=== PATIENT | male | born 1965 | race Caucasian/White ===

== ENCOUNTER 2016-11-05 13:02 | Inpatient (IN) | payer OTHER ==
[2016-11-05 13:24] VITALS: BMI 22.9
--- NOTE | 2016-11-05 15:42 | HP ---
COWS - Scale Resting Pulse: 0= [place] 80 or Below Sweatin=Flushed/Facial Moisture Restless Observation: 1= Difficult to Sit Still Pupil Size: 0= Normal to Room Light Bone or Joint Aches: 2= Severe Diffuse Aches Runny Nose/ Eye Tearin= Runny Nose/Eyes GI Upset > 30mins: 2= Nausea/Diarrhea Tremor Observation: 2= Slight Tremor Visible Yawning Observation: 1= 1-2x During Session Anxiety or Irritability: 2=Irritable/Anxious Goose Flesh Skin: 3=Piloerection COWS Score: 17 Admission ROS S - HPI Chief Complaint: I want to stop using Xanax and Oxycodone Allergies/Adverse Reactions: Allergies Allergy/AdvReac Type Severity Reaction Status Date / Time No Known Allergies Allergy Verified 11/05/16 15:33 History of Present Illness: 50 y/o male with opiates and xanax dependence presents for detox. He denies any periods of sobriety. Exam Limitations: No Limitations - Ebola screening Have you traveled outside of the country in the last 21 days: No Have you had contact with anyone from an Ebola affected area: No Have you been sick,other than usual withdrawal symptoms: No Do you have a fever: No - Review of Systems Constitutional: Chills, Malaise EENT: reports: Nose Congestion Respiratory: reports: No Symptoms reported Cardiac: reports: No Symptoms Reported GI: reports: Nausea, Poor Appetite : reports: No Symptoms Reported Musculoskeletal: reports: Muscle Weakness Integumentary: reports: Flushing Neuro: reports: Tremors, Weakness Endocrine: reports: No Symptoms Reported Hematology: reports: No Symptoms Reported Psychiatric: reports: No Sypmtoms Reported Other Systems: Reviewed and Negative Patient History - Patient Medical History Hx Anemia: No Hx Asthma: No Hx Chronic Obstructive Pulmonary Disease (COPD): No Hx Cancer: No Hx Cardiac Disorders: No Hx Congestive Heart Failure: No Hx Hypertension: No Hx Hypercholesterolemia: No Hx Pacemaker: No HX Cerebrovascular Accident: No Hx Seizures: No Hx Dementia: No Hx Diabetes: No Hx Gastrointestinal Disorders: No Hx Liver Disease: No Hx Genitourinary Disorders: No Hx Sexually Transmitted Disorders: No Hx Renal Disease (ESRD): No Hx Thyroid Disease: No Hx Human Immunodeficiency Virus (HIV): No Hx Hepatitis C: No Hx Depression: No Hx Suicide Attempt: No Hx Bipolar Disorder: No Hx Schizophrenia: No - Patient Surgical History Past Surgical History: No - PPD History Previous Implant?: Yes Documented Results: Negative w/o proof Implanted On Prior [facility] Admission?: No PPD to be Administered?: Yes - Reproductive History Patient is a Female of Child Bearing Age (11 -55 yrs old): No - Smoking Cessation Smoking history: Former smoker Have you smoked in the past 12 months: No Hx Chewing Tobacco Use: No Initiated information on smoking cessation: Yes 'Breaking Loose' booklet given: 11/05/16 - Substances Abused Alprazolam (Xanax) Route: Oral Frequency: Daily Amount used: 6mg Age of first use: 46 Date of Last Use: 11/05/16 Oxycontin Route: Oral Frequency: Daily Amount used: 15mg Age of first use: 50 Date of Last Use: 11/05/16 Family Disease History - Family Disease History Family History: Unremarkable Admission Physical Exam [facility] - Vital Signs Vital Signs: Vital Signs - 24 hr 11/05/16 13:23 Temperature 95.7 F L Pulse Rate 53 L Respiratory 18 Rate Blood Pressure 116/76 - Physical General Appearance: Yes: No Apparent Distress HEENTM: Yes: Hearing grossly Normal, Normocephalic, Normal Voice, Pharynx Normal Respiratory: Yes: Chest Non-Tender, Lungs Clear, Normal Breath Sounds, No Respiratory Distress, No Accessory Muscle Use Neck: Yes: No masses,lesions,Nodules, Supple Breast: Yes: Breast Exam Deferred Cardiology: Yes: Regular Rate, S1, S2 Abdominal: Yes: Normal Bowel Sounds, Non Tender, Flat, Soft Genitourinary: Yes: Within Normal Limits Back: Yes: Normal Inspection Musculoskeletal: Yes: full range of Motion Extremities: Yes: Normal Capillary Refill, Normal Inspection, Normal Range of Motion, Non-Tender, Tremors Neurological: Yes: litigation attorney II-XII NML intact, Fully Oriented, Alert, Motor Strength 5/5, Normal Mood/Affect, Normal Response Integumentary: Yes: Normal Color Lymphatic: Yes: Within Normal Limits - Diagnostic (1) Opioid dependence with withdrawal Current Visit: Yes Status: Acute (2) Sedative/hypnotic withdrawal without complication Current Visit: Yes Status: Acute Cleared for Admission [facility] - Detox or Rehab [facility] Level of Care: Medically Managed Detox Regimen/Protocol: Methadone/Valium [facility] Breath Alcohol Content Breath Alcohol Content: 0 Urine Drug Screen - Results Drug Screen Negative: No Urine Drug Screen Results: BZO-Benzodiazepines, OXY-Oxycodone
[2016-11-05] MEDS ORDERED: ACETAMINOPHEN 325 MG TABLET (FP) PO PRN (15:48)
[2016-11-05] MEDS ORDERED: MENTHOL/PHENOL 1 EACH UD MM PRN (15:48)
[2016-11-05] MEDS ORDERED: METHADONE HCL 10 MG TABLET (FOR DETOX USE ONLY) PO ONE ×2 (15:48→23:00)
[2016-11-05] MEDS ORDERED: guaiFENesin/D-METHORPHAN HB 10 ML UNIT-DOSE CUPS PO PRN (15:48)
[2016-11-05] MEDS ORDERED: MAGNESIUM CITRATE 300 ML BOTTLE PO PRN (15:48)
[2016-11-05] MEDS ORDERED: LOPERAMIDE HCL 2 MG CAPSULE PO PRN (15:48)
[2016-11-05] MEDS ORDERED: diazePAM 5 MG TABLET PO ONE (15:48)
[2016-11-05] MEDS ORDERED: MAG HYDROX/AL HYDROX/SIMETH 30 ML UNIT-DOSE CUP PO PRN (15:48)
[2016-11-05] MEDS ORDERED: P-EPHED 60MG/TRIPROLIDI 2.5MG TABLET PO PRN (15:48)
[2016-11-05] MEDS ORDERED: hydrOXYzine PAMOATE 50 MG CAPSULE (FP) PO PRN (15:48)
[2016-11-05] MEDS ORDERED: IBUPROFEN 400 MG TABLET (FP) PO PRN (15:48)
[2016-11-05] MEDS ORDERED: MAGNESIUM HYDROX 2400MG/30ML ORAL SUSPENSION 30 ML CUP PO PRN (15:48)
[2016-11-05] MEDS: THIAMINE HCL 100 MG TABLET (FP) PO SCH (22:16)
[2016-11-05] MEDS: diazePAM 5 MG TABLET PO SCH (22:17)
[2016-11-05] MEDS: diphenhydrAMINE HCL 50 MG CAPSULE PO PRN (22:37)
[2016-11-06] MEDS: diazePAM 5 MG TABLET PO SCH ×3 (06:11→22:27)
[2016-11-06] MEDS ORDERED: METHADONE HCL 10 MG TABLET (FOR DETOX USE ONLY) PO SCH (10:00)
[2016-11-06 10:19] LABS: MCH 29.7 pg (25.7-33.7); MCHC 33.9 g/dl (32.0-35.9); MEAN CELL VOLUME 87.4 fl (80-96); MEAN PLT VOLUME 9.6 fl (7.5-11.1); PLATELET COUNT 199 K/MM3 (134-434); WHITE BLOOD COUNT 5.7 K/mm3 (4.0-10.0)
[2016-11-06] MEDS: PRENATAL VITAMINS W/ FOLIC ACID TABLET (FP) PO SCH (10:20)
[2016-11-06 10:44] LABS: ALBUMIN 3.6 g/dl (3.4-5.0); ALK PHOS 84 U/L (45-117); ANION GAP 6 (8-16); BILIRUBIN,TOTAL 0.8 mg/dL (0.2-1.0); CALCIUM 8.8 mg/dL (8.5-10.1); CO2 32 mmol/L (21-32); CREATININE 0.9 mg/dL (0.7-1.3); GLUCOSE,RANDOM 86 mg/dL (74-106); SGOT/AST 13 U/L (15-37); SGPT/ALT 24 U/L (12-78); TOT PROT 6.1 g/dl (6.4-8.2)
--- NOTE | 2016-11-06 15:59 | PN ---
[facility] CIWA - CIWA Score Nausea/Vomitin Muscle Tremors: 4-Moderate,w/Arms Extend Anxiety: 4-Mod. Anxious/Guarded Agitation: 4-Moderately Restless Paroxysmal Sweats: No Perspiration Orientation: 0-Oriented Tacttile Disturbances: 1-Very Mild Itch/Numbness Auditory Disturbances: 0-None Visual Disturbances: 0-None Headache: 2-Mild CIWA-Ar Total Score: 17 [facility] COWS - Scale Resting Pulse: 1= [place] 81-100 Sweatin= No chills or Flushing Restless Observation: 0= Sits Still Pupil Size: 0= Normal to Room Light Bone or Joint Aches: 2= Severe Diffuse Aches Runny Nose/ Eye Tearin= Runny Nose/Eyes GI Upset > 30mins: 2= Nausea/Diarrhea Tremor Observation of Outstretched Hands: 2= Slight Tremor Visible Yawning Observation: 1= 1-2x During Session Anxiety or Irritability: 2=Irritable/Anxious Goose Flesh Skin: 0=Smooth Skin COWS Score: 12 S Progress Note (SOAP) Subjective: Anxious, restless, nausea, yawning, tremor, interrupted sleep, sweating Objective: 11/06/16 15:58 Last Vital Signs Temp Pulse Resp BP Pulse Ox 96.3 F L 57 L 18 134/84 11/06/16 13:36 11/06/16 13:36 11/06/16 13:36 11/06/16 13:36 Laboratory Tests 11/06/16 11/06/16 11/06/16 08:00 08:00 08:00 WBC 5.7 RBC 4.34 Hgb 12.9 Hct 37.9 MCV 87.4 MCHC 33.9 RDW 13.0 Plt Count 199 MPV 9.6 Sodium 141 Potassium 3.9 Chloride 103 Carbon Dioxide 32 Anion Gap 6 L BUN 13 Creatinine 0.9 Creat Clearance w eGFR > 60 Random Glucose 86 Calcium 8.8 Total Bilirubin 0.8 AST 13 L ALT 24 Alkaline Phosphatase 84 Total Protein 6.1 L Albumin 3.6 RPR Titer Nonreactive Labs noted Assessment: 11/06/16 15:59 Withdrawal symptoms Plan: Continue detox
[2016-11-06] MEDS: diazePAM 5 MG TABLET PO PRN (17:37)
[2016-11-06 17:40] LABS: URINE APPEARANCE CLEAR; URINE BILIRUBIN NEGATIVE (NEGATIVE); URINE BLOOD NEGATIVE (NEGATIVE); URINE COLOR YELLOW; URINE GLUCOSE (UA) NEGATIVE (NEGATIVE); URINE KETONE NEGATIVE (NEGATIVE); URINE LEUK ESTERASE NEGATIVE (NEGATIVE); URINE NITRITE NEGATIVE (NEGATIVE); URINE PROTEIN NEGATIVE (NEGATIVE); URINE UROBILINOGEN NEGATIVE E.U./dl (0.2-1.0)
--- NOTE | 2016-11-06 18:16 | EKG ---
Test Reason : Blood Pressure : / mmHG Vent. Rate : 056 BPM Atrial Rate : 056 BPM P-R Int : 152 ms QRS Dur : 094 ms QT Int : 416 ms P-R-T Axes : 071 080 064 degrees QTc Int : 401 ms SINUS BRADYCARDIA OTHERWISE NORMAL ECG NO PREVIOUS ECGS AVAILABLE Confirmed by CAIN STACY MD ([id number]) on 11/06/2016 6:16:34 PM Referred By: Confirmed By:CAIN STACY MD
[2016-11-06] MEDS: diphenhydrAMINE HCL 50 MG CAPSULE PO PRN (22:25)
[2016-11-06] MEDS: THIAMINE HCL 100 MG TABLET (FP) PO SCH (22:26)
[2016-11-07] MEDS: diazePAM 5 MG TABLET PO PRN ×3 (00:29→17:12)
[2016-11-07] MEDS: PRENATAL VITAMINS W/ FOLIC ACID TABLET (FP) PO SCH (10:18)
[2016-11-07] MEDS: diazePAM 5 MG TABLET PO SCH ×2 (10:18→22:25)
[2016-11-07] MEDS: METHADONE HCL 5 MG TABLET (FOR DETOX USE ONLY) PO SCH (10:19)
--- NOTE | 2016-11-07 10:56 | PN ---
S CIWA - CIWA Score Nausea/Vomitin-No Nausea/No Vomiting Muscle Tremors: 3 Anxiety: 4-Mod. Anxious/Guarded Agitation: 4-Moderately Restless Paroxysmal Sweats: 3 Orientation: 0-Oriented Tacttile Disturbances: 0-None Auditory Disturbances: 0-None Visual Disturbances: 0-None Headache: 0-None Present CIWA-Ar Total Score: 14 S COWS - Scale Resting Pulse: 0= [place] 80 or Below Sweatin=Flushed/Facial Moisture Restless Observation: 1= Difficult to Sit Still Pupil Size: 0= Normal to Room Light Bone or Joint Aches: 1= Mild Discomfort Runny Nose/ Eye Tearin= Runny Nose/Eyes GI Upset > 30mins: 2= Nausea/Diarrhea Tremor Observation of Outstretched Hands: 2= Slight Tremor Visible Yawning Observation: 1= 1-2x During Session Anxiety or Irritability: 2=Irritable/Anxious Goose Flesh Skin: 0=Smooth Skin COWS Score: 13 S Progress Note (SOAP) Subjective: Anxiety,tremors,sweating,interrupted sleep,restless,muscle aches Objective: 11/07/16 10:55 Vital Signs - 8 hr 11/07/16 11/07/16 11/07/16 03:35 06:13 09:58 Temperature 96.5 F L 96.7 F L Pulse Rate 53 L 68 Respiratory 18 18 18 Rate Blood Pressure 104/68 115/71 Laboratory Tests 11/06/16 11/06/16 11/06/16 08:00 08:00 08:00 WBC 5.7 RBC 4.34 Hgb 12.9 Hct 37.9 MCV 87.4 MCHC 33.9 RDW 13.0 Plt Count 199 MPV 9.6 Sodium 141 Potassium 3.9 Chloride 103 Carbon Dioxide 32 Anion Gap 6 L BUN 13 Creatinine 0.9 Creat Clearance w eGFR > 60 Random Glucose 86 Calcium 8.8 Total Bilirubin 0.8 AST 13 L ALT 24 Alkaline Phosphatase 84 Total Protein 6.1 L Albumin 3.6 Urine Color Urine Appearance Urine pH Ur Specific [place] Urine Protein Urine Glucose (UA) Urine Ketones Urine Blood Urine Nitrite Urine Bilirubin Urine Urobilinogen Ur Leukocyte Esterase RPR Titer Nonreactive 11/06/16 14:51 WBC RBC Hgb Hct MCV MCHC RDW Plt Count MPV Sodium Potassium Chloride Carbon Dioxide Anion Gap BUN Creatinine Creat Clearance w eGFR Random Glucose Calcium Total Bilirubin AST ALT Alkaline Phosphatase Total Protein Albumin Urine Color Yellow Urine Appearance Clear Urine pH 5.0 Ur Specific [place] 1.021 Urine Protein Negative Urine Glucose (UA) Negative Urine Ketones Negative Urine Blood Negative Urine Nitrite Negative Urine Bilirubin Negative Urine Urobilinogen Negative Ur Leukocyte Esterase Negative RPR Titer labs noted Assessment: 11/07/16 10:55 withdrawal sx. Plan: continue detox
[2016-11-07] MEDS: THIAMINE HCL 100 MG TABLET (FP) PO SCH (22:25)
[2016-11-07] MEDS: diphenhydrAMINE HCL 50 MG CAPSULE PO PRN (22:25)
[2016-11-08] MEDS: diazePAM 5 MG TABLET PO PRN ×2 (05:43→12:24)
[2016-11-08] MEDS: PRENATAL VITAMINS W/ FOLIC ACID TABLET (FP) PO SCH (10:23)
[2016-11-08] MEDS: diazePAM 5 MG TABLET PO SCH (10:23)
[2016-11-08] MEDS: METHADONE HCL 5 MG TABLET (FOR DETOX USE ONLY) PO SCH (10:23)
--- NOTE | 2016-11-08 10:35 | PN ---
BHS Progress Note (SOAP) Subjective: ANXIETY, 'EDGY',CHILLS/SWEATS,INTERMITTENT SLEEP. Objective: 11/08/16 10:34 Vital Signs Temperature 97 F L 11/08/16 09:56 Pulse Rate 60 11/08/16 09:56 Respiratory Rate 18 11/08/16 09:56 Blood Pressure 110/68 11/08/16 09:56 O2 Sat by Pulse Oximetry (%) Assessment: 11/08/16 10:35 WITHDRAWAL SX Plan: CONTINUE DETOX
[2016-11-08 17:37] VITALS: BP 91/60; PULSE 57; TEMP 95.9
--- NOTE | 2016-11-08 17:46 | DS ---
[facility] Detox Discharge Summary Admission Date: 11/05/16 Discharge Date: 11/08/16 - History Present History: Opioid Dependence, Sedative Dependence - Physical Exam Results Vital Signs: Vital Signs Temperature 95.9 F L 11/08/16 17:35 Pulse Rate 57 L 11/08/16 17:35 Respiratory Rate 18 11/08/16 17:35 Blood Pressure 91/60 11/08/16 17:35 O2 Sat by Pulse Oximetry (%) - Treatment Hospital Course: Detox Protocol Followed - Medication Discharge Medications: Ambulatory Orders NK [No Known Home Medication] 11/05/16 - Diagnosis (1) Opioid dependence with withdrawal Current Visit: Yes Status: Chronic (2) Sedative/hypnotic withdrawal without complication Current Visit: Yes Status: Chronic - AMA Did Patient Leave Against Medical Advice: Yes (pt wants to leave because his prn valium finished , didn;t want any alterna)
[2016-11-09] MEDS ORDERED: METHADONE HCL 10 MG TABLET (FOR DETOX USE ONLY) PO SCH (10:00)
[2016-11-09] MEDS ORDERED: diazePAM 5 MG TABLET PO SCH (10:00)
[2016-11-10] MEDS ORDERED: METHADONE HCL 5 MG TABLET (FOR DETOX USE ONLY) PO SCH (06:00)
== END 2016-11-08 18:02 | disposition left against medical advice (07) | DRG 743 ==
LOC: YASAS 13:02 → Y3N 15:09
PROVIDERS: ADMIT Internal Medicine; ATTEND Internal Medicine
PROC: HZ2ZZZZ Detoxification Services for Substance Abuse Treatment (ICD-10-PCS; principal; 2016-11-08)
DX: F11.23 Opioid dependence with withdrawal (principal); F13.230 Sedative, hypnotic or anxiolytic dependence with withdrawal, uncomplicated
CPT/HCPCS: 36415; 80053; 81003; 85027; 86593; 93005; 93010